=== PATIENT | male | born 1985 | race Caucasian/White ===

== ENCOUNTER 2019-12-08 00:55 | Emergency (ER) | payer OTHER ==
[~2019-12-08] VITALS: Ht 167.6 cm; Wt 65.8 kg
[2019-12-08 01:05] VITALS: Ht 167.6 cm; Wt 65.8 kg
[2019-12-08 02:34] VITALS: BP 119/73
== END 2019-12-08 02:34 | disposition home or self-care (01) ==
LOC: ED 00:55
DX: R07.89 Other chest pain (principal); R06.00 Dyspnea, unspecified; R53.1 Weakness
CPT/HCPCS: Q0092